=== PATIENT | male | born 1970 | race Caucasian/White ===

== ENCOUNTER 2017-04-07 17:22 | Inpatient (IN) | payer OTHER ==
--- NOTE | 2017-04-07 20:34 | HP ---
COWS - Scale Resting Pulse: 0= NE 80 or Below Sweatin=Flushed/Facial Moisture Restless Observation: 1= Difficult to Sit Still Pupil Size: 1= Pupils >than Normal Bone or Joint Aches: 1= Mild Discomfort Runny Nose/ Eye Tearin= Runny Nose/Eyes GI Upset > 30mins: 1= Stomach Cramp Tremor Observation: 2= Slight Tremor Visible Yawning Observation: 1= 1-2x During Session Anxiety or Irritability: 1=Feels Anxious/Irritable Goose Flesh Skin: 0=Smooth Skin COWS Score: 12 CIWA Score - CIWA Score Nausea/Vomitin Muscle Tremors: 3 Anxiety: 2 Agitation: 2 Paroxysmal Sweats: 3 Orientation: 0-Oriented Tacttile Disturbances: 2-Mild Itch/Numbness/Burn Auditory Disturbances: 2-Mild Harshness/Frighten Visual Disturbances: 2-Mild Sensitivity Headache: 2-Mild CIWA-Ar Total Score: 20 Admission ROS BHS - HPI Chief Complaint: DEPENDENT ON ETOH, COCAINE AND HEROIN ON 140-150 MGS. OF MMTP FROM [facility] - LAST DOSE THIS AM Allergies/Adverse Reactions: Allergies Allergy/AdvReac Type Severity Reaction Status Date / Time No Known Allergies Allergy Verified 04/07/17 20:44 History of Present Illness: THE PT. IS REQUESTING ADMISSION TO THE DETOX UNIT AND CAME FOR H AND PE Exam Limitations: No Limitations - Ebola screening Have you traveled outside of the country in the last 21 days: No Have you had contact with anyone from an Ebola affected area: No Have you been sick,other than usual withdrawal symptoms: No Do you have a fever: No - Review of Systems Constitutional: See HPI, Malaise, Weakness EENT: reports: See HPI Respiratory: reports: See HPI Cardiac: reports: See HPI, Syncope GI: reports: See HPI, Nausea, Abdominal cramping : reports: No Symptoms Reported, See HPI Musculoskeletal: reports: See HPI, Muscle Pain, Muscle Weakness Integumentary: reports: See HPI, Sweating Neuro: reports: See HPI, Headache, Tremors, Weakness Endocrine: reports: See HPI Hematology: reports: See HPI Psychiatric: reports: Judgement Intact, Orientated x3, Anxious, Depressed Patient History - Patient Medical History Hx Hypertension: Yes (ON CLONIDINE 0.2 MGS. BID) Hx Genitourinary Disorders: Yes (BPH) Hx Human Immunodeficiency Virus (HIV): No Hx Hepatitis C: No Hx Depression: No Hx Suicide Attempt: No - Patient Surgical History Past Surgical History: No - Smoking Cessation Smoking history: Current every day smoker Have you smoked in the past 12 months: Yes Aproximately how many cigarettes per day: 20 Hx Chewing Tobacco Use: No Initiated information on smoking cessation: Yes 'Breaking Loose' booklet given: 04/07/17 - Substance & Tx. History Hx Alcohol Use: Yes Hx Substance Use: Yes Substance Use Type: Alcohol, Cocaine, Heroin, Prescribed Hx Substance Use Treatment: Yes - Substances Abused Alcohol Route: Oral Frequency: Daily Amount used: BEER 2X6 PKS/LIQUOR 2 P/D Age of first use: 17 Date of Last Use: 04/07/17 Cocaine Route: Smoking Frequency: Daily Amount used: 1-2 GRAMS/D Age of first use: 33 Date of Last Use: 04/06/17 Heroin Route: Injection Frequency: 3-6 times per week Amount used: 10 B/ON ALT. DAY Age of first use: 33 Date of Last Use: 04/06/17 Family Disease History - Family Disease History Family Disease History: Diabetes: Mother Admission Physical Exam [facility] - Physical General Appearance: Yes: No Apparent Distress, Nourished, Appropriately Dressed , Tremorous, Sweating, Anxious HEENTM: Yes: Hearing grossly Normal, Normocephalic, Normal Voice, ADARSH, Pharynx Normal Respiratory: Yes: Chest Non-Tender, Lungs Clear, Normal Breath Sounds, No Respiratory Distress, No Accessory Muscle Use Neck: Yes: No masses,lesions,Nodules, Supple, Trachea in good position Breast: Yes: Breast Exam Deferred, Axillae without masses Cardiology: Yes: Regular Rhythm, Regular Rate, S1, S2 Abdominal: Yes: Normal Bowel Sounds, Non Tender, Flat, Soft Back: Yes: Normal Inspection Musculoskeletal: Yes: full range of Motion, Gait Steady, Pelvis Stable, Muscle Pain, Muscle weakness Extremities: Yes: Normal Capillary Refill, Normal Range of Motion, Non-Tender, Tremors Neurological: Yes: exhibits curator II-XII NML intact, Fully Oriented, Alert, Motor Strength 5/5, Normal Response Integumentary: Yes: Warm, Moist, Track [place] Lymphatic: Yes: Within Normal Limits - Diagnostic (1) EtOH dependence Current Visit: Yes Status: Chronic Qualifiers: Substance use status: uncomplicated Qualified Code(s): F10.20 - Alcohol dependence, uncomplicated; F10.20 - Alcohol dependence, uncomplicated; F10.20 - Alcohol dependence, uncomplicated (2) Heroin dependence Current Visit: Yes Status: Chronic (3) Cocaine dependence Current Visit: Yes Status: Chronic Qualifiers: Substance use status: uncomplicated Qualified Code(s): F14.20 - Cocaine dependence, uncomplicated; F14.20 - Cocaine dependence, uncomplicated; F14.20 - Cocaine dependence, uncomplicated (4) Nicotine dependence Current Visit: Yes Status: Chronic (5) HTN (hypertension) Current Visit: Yes Status: Chronic Qualifiers: Hypertension type: essential hypertension Qualified Code(s): I10 - Essential (primary) hypertension; I10 - Essential (primary) hypertension; I10 - Essential (primary) hypertension (6) Methadone maintenance therapy patient Current Visit: Yes Status: Chronic (7) BPH (benign prostatic hyperplasia) Current Visit: Yes Status: Chronic Cleared for Admission BHS - Detox or Rehab BHS Level of Care: Medically Supervised Detox Regimen/Protocol: Librium BHS Breath Alcohol Content Breath Alcohol Content: 0 Vital Signs - Vital Signs Vital Signs Refused: No Temperature: 98.1 F Temperature Source: Oral Pulse Rate: 71 Respiratory Rate: 14 Blood Pressure: 112/73 BP Location: Left Arm Blood Pressure Position: Sitting - Height Height: 5 ft 6 in - Weight Weight: 165 lb Weight Measurement Method: Estimated by Patient Body Mass Index (BMI): 26.6 Urine Drug Screen - Test Device Lot Number: [id number] Expiration Date: 12/22/18 - Control Is Test Valid: Yes - Results Drug Screen Negative: No Urine Drug Screen Results: JOHNNY-Cocaine, OPI-Opiates, BZO-Benzodiazepines, MTD- Methadone
[2017-04-07] MEDS ORDERED: chlordiazePOXIDE HCL 25 MG CAPSULE PO PRN (20:52)
[2017-04-07] MEDS ORDERED: P-EPHED 60MG/TRIPROLIDI 2.5MG TABLET PO PRN (20:52)
[2017-04-07] MEDS ORDERED: ACETAMINOPHEN 325 MG TABLET (FP) PO PRN (20:52)
[2017-04-07] MEDS ORDERED: chlordiazePOXIDE HCL 25 MG CAPSULE PO ONE (20:52)
[2017-04-07] MEDS ORDERED: diphenhydrAMINE HCL 50 MG CAPSULE PO PRN (20:52)
[2017-04-07] MEDS ORDERED: MAG HYDROX/AL HYDROX/SIMETH 30 ML UNIT-DOSE CUP PO PRN (20:52)
[2017-04-07] MEDS ORDERED: MENTHOL/PHENOL 1 EACH UD MM PRN (20:52)
[2017-04-07] MEDS ORDERED: hydrOXYzine PAMOATE 25 MG CAPSULE (FP) PO PRN (20:52)
[2017-04-07] MEDS ORDERED: IBUPROFEN 400 MG TABLET (FP) PO PRN (20:52)
[2017-04-07] MEDS ORDERED: NICOTINE POLACRILEX 4 MG GUM BUC PRN (20:52)
[2017-04-07] MEDS ORDERED: LOPERAMIDE HCL 2 MG CAPSULE PO PRN (20:52)
[2017-04-07] MEDS ORDERED: MAGNESIUM HYDROX 2400MG/30ML ORAL SUSPENSION 30 ML CUP PO PRN (20:52)
[2017-04-07] MEDS ORDERED: guaiFENesin/D-METHORPHAN HB 10 ML UNIT-DOSE CUPS PO PRN (20:52)
[2017-04-07] MEDS ORDERED: MAGNESIUM CITRATE 300 ML BOTTLE PO PRN (20:52)
[2017-04-07 20:54] VITALS: BMI 26.6
[2017-04-07] MEDS: cloNIDine HCL 0.1 MG TABLET PO SCH (23:38)
[2017-04-07] MEDS: chlordiazePOXIDE HCL 25 MG CAPSULE PO SCH (23:39)
[2017-04-07] MEDS: THIAMINE HCL 100 MG TABLET (FP) PO SCH (23:41)
[2017-04-08] MEDS: chlordiazePOXIDE HCL 25 MG CAPSULE PO SCH ×4 (06:10→22:24)
[2017-04-08] MEDS ORDERED: METHADONE HCL 10 MG TABLET PO SCH (10:15)
[2017-04-08] MEDS: cloNIDine HCL 0.1 MG TABLET PO SCH ×2 (10:29→22:24)
[2017-04-08] MEDS: NICOTINE 21 MG/24 HOURS TOPICAL PATCH TD SCH (10:29)
[2017-04-08] MEDS: PRENATAL VITAMINS W/ FOLIC ACID TABLET (FP) PO SCH (10:29)
[2017-04-08 11:35] LABS: MCHC 33.5 g/dl (32.0-35.9); MEAN CELL VOLUME 80.7 fl (80-96); MEAN PLT VOLUME 8.2 fl (7.5-11.1); PLATELET COUNT 229 K/MM3 (134-434); RDW 16.4 % (11.9-15.9); WHITE BLOOD COUNT 9.1 K/mm3 (4.0-10.0)
[2017-04-08] MEDS ORDERED: METHADONE HCL 10 MG TABLET ONE (11:45)
[2017-04-08] MEDS ORDERED: METHADONE HCL 40 MG DISPERSABLE TABLET ONE (11:45)
[2017-04-08] MEDS: METHADONE 120 MG, METHADONE 30 MG PO SCH (11:49)
[2017-04-08 11:51] LABS: ALBUMIN 3.2 g/dl (3.4-5.0); ALK PHOS 48 U/L (45-117); ANION GAP 10 (8-16); BILIRUBIN,TOTAL 0.2 mg/dL (0.2-1.0); CALCIUM 8.3 mg/dL (8.5-10.1); CO2 28 mmol/L (21-32); CREATININE 0.7 mg/dL (0.7-1.3); GLUCOSE,RANDOM 104 mg/dL (74-106); SGOT/AST 12 U/L (15-37); SGPT/ALT 16 U/L (12-78); TOT PROT 6.1 g/dl (6.4-8.2)
[2017-04-08 11:55] LABS: URINE APPEARANCE CLOUDY; URINE BILIRUBIN NEGATIVE (NEGATIVE); URINE BLOOD NEGATIVE (NEGATIVE); URINE COLOR DKYELLOW; URINE GLUCOSE (UA) NEGATIVE (NEGATIVE); URINE KETONE NEGATIVE (NEGATIVE); URINE NITRITE NEGATIVE (NEGATIVE); URINE PROTEIN NEGATIVE (NEGATIVE)
[2017-04-08] MEDS ORDERED: ONDANSETRON *ODT* 4 MG TABLET SL PRN (12:32)
--- NOTE | 2017-04-08 12:55 | PN ---
S CIWA - CIWA Score Nausea/Vomitin Muscle Tremors: 3 Anxiety: 3 Agitation: 3 Paroxysmal Sweats: 2 Orientation: 0-Oriented Tacttile Disturbances: 1-Very Mild Itch/Numbness Auditory Disturbances: 1-Very Mild Visual Disturbances: 1-Very Mild Sensitivity Headache: 2-Mild CIWA-Ar Total Score: 19 S Progress Note (SOAP) Subjective: ALERT,IRRITABLE,ANXIOUS,INTERRUPTED SLEEP,TREMOR,NAUSEA Objective: 04/08/17 12:52 Vital Signs Temperature 98.2 F 04/08/17 10:57 Pulse Rate 73 04/08/17 10:57 Respiratory Rate 18 04/08/17 10:57 Blood Pressure 119/81 04/08/17 10:57 O2 Sat by Pulse Oximetry (%) EKG NSR 70/MIN INVERTED T IN V3 NO CHEST PAIN,,NO SOB,NO DIZZINESS Laboratory Last Values WBC 9.1 K/mm3 (4.0-10.0) 04/08/17 07:45 RBC 4.96 M/mm3 (4.00-5.60) 04/08/17 07:45 Hgb 13.4 GM/dL (11.7-16.9) 04/08/17 07:45 Hct 40.0 % (35.4-49) 04/08/17 07:45 MCV 80.7 fl (80-96) 04/08/17 07:45 MCH 27.0 pg (25.7-33.7) 04/08/17 07:45 MCHC 33.5 g/dl (32.0-35.9) 04/08/17 07:45 RDW 16.4 % (11.9-15.9) H 04/08/17 07:45 Plt Count 229 K/MM3 (134-434) 04/08/17 07:45 MPV 8.2 fl (7.5-11.1) D 04/08/17 07:45 Sodium 142 mmol/L (136-145) 04/08/17 07:45 Potassium 3.5 mmol/L (3.5-5.1) 04/08/17 07:45 Chloride 104 mmol/L (98-107) 04/08/17 07:45 Carbon Dioxide 28 mmol/L (21-32) 04/08/17 07:45 Anion Gap 10 (8-16) 04/08/17 07:45 BUN 14 mg/dL (7-18) 04/08/17 07:45 Creatinine 0.7 mg/dL (0.7-1.3) 04/08/17 07:45 Creat Clearance w eGFR > 60 (>60) 04/08/17 07:45 Random Glucose 104 mg/dL (74-106) 04/08/17 07:45 Calcium 8.3 mg/dL (8.5-10.1) L 04/08/17 07:45 Total Bilirubin 0.2 mg/dL (0.2-1.0) D 04/08/17 07:45 AST 12 U/L (15-37) L 04/08/17 07:45 ALT 16 U/L (12-78) D 04/08/17 07:45 Alkaline Phosphatase 48 U/L (45-117) 04/08/17 07:45 Total Protein 6.1 g/dl (6.4-8.2) L 04/08/17 07:45 Albumin 3.2 g/dl (3.4-5.0) L D 04/08/17 07:45 Urine Color Dkyellow 04/08/17 11:31 Urine Appearance Cloudy 04/08/17 11:31 Urine pH 5.0 (5.0-8.0) 04/08/17 11:31 Urine Protein Negative (NEGATIVE) 04/08/17 11:31 Urine Glucose (UA) Negative (NEGATIVE) 04/08/17 11:31 Urine Ketones Negative (NEGATIVE) 04/08/17 11:31 Urine Blood Negative (NEGATIVE) 04/08/17 11:31 Urine Nitrite Negative (NEGATIVE) 04/08/17 11:31 Urine Bilirubin Negative (NEGATIVE) 04/08/17 11:31 Urine Urobilinogen 2.0 mg/dL (0.2-1.0) 04/08/17 11:31 RPR Titer Nonreactive (NONREACTIVE) 04/08/17 07:45 Assessment: 04/08/17 12:54 WITHDRAWAL SYMPTOM Plan: CONTINUE DETOX
[2017-04-08 15:21] LABS: URINE LEUK ESTERASE Negative (NEGATIVE)
[2017-04-08] MEDS: THIAMINE HCL 100 MG TABLET (FP) PO SCH (22:24)
[2017-04-09] MEDS: chlordiazePOXIDE HCL 25 MG CAPSULE PO SCH ×3 (05:18→17:25)
[2017-04-09] MEDS ORDERED: METHADONE HCL 40 MG DISPERSABLE TABLET ONE (05:19)
[2017-04-09] MEDS: METHADONE 120 MG, METHADONE 30 MG PO SCH (05:20)
[2017-04-09] MEDS ORDERED: METHADONE HCL 10 MG TABLET ONE (05:20)
[2017-04-09] MEDS: cloNIDine HCL 0.1 MG TABLET PO SCH ×2 (10:30→22:19)
[2017-04-09] MEDS: PRENATAL VITAMINS W/ FOLIC ACID TABLET (FP) PO SCH (10:30)
[2017-04-09] MEDS: NICOTINE 21 MG/24 HOURS TOPICAL PATCH TD SCH (10:31)
--- NOTE | 2017-04-09 11:40 | PN ---
S CIWA - CIWA Score Nausea/Vomitin Muscle Tremors: 3 Anxiety: 3 Agitation: 2 Paroxysmal Sweats: 1-Minimal Palms Moist Orientation: 0-Oriented Tacttile Disturbances: 1-Very Mild Itch/Numbness Auditory Disturbances: 1-Very Mild Visual Disturbances: 0-None Headache: 2-Mild CIWA-Ar Total Score: 16 BHS Progress Note (SOAP) Subjective: alert,irritable,anxious,interrupted sleep,tremor Objective: 04/09/17 11:39 Vital Signs Temperature 98.1 F 04/09/17 11:04 Pulse Rate 80 04/09/17 11:04 Respiratory Rate 20 04/09/17 11:04 Blood Pressure 97/76 04/09/17 11:04 O2 Sat by Pulse Oximetry (%) Laboratory Last Values WBC 9.1 K/mm3 (4.0-10.0) 04/08/17 07:45 RBC 4.96 M/mm3 (4.00-5.60) 04/08/17 07:45 Hgb 13.4 GM/dL (11.7-16.9) 04/08/17 07:45 Hct 40.0 % (35.4-49) 04/08/17 07:45 MCV 80.7 fl (80-96) 04/08/17 07:45 MCH 27.0 pg (25.7-33.7) 04/08/17 07:45 MCHC 33.5 g/dl (32.0-35.9) 04/08/17 07:45 RDW 16.4 % (11.9-15.9) H 04/08/17 07:45 Plt Count 229 K/MM3 (134-434) 04/08/17 07:45 MPV 8.2 fl (7.5-11.1) D 04/08/17 07:45 Sodium 142 mmol/L (136-145) 04/08/17 07:45 Potassium 3.5 mmol/L (3.5-5.1) 04/08/17 07:45 Chloride 104 mmol/L (98-107) 04/08/17 07:45 Carbon Dioxide 28 mmol/L (21-32) 04/08/17 07:45 Anion Gap 10 (8-16) 04/08/17 07:45 BUN 14 mg/dL (7-18) 04/08/17 07:45 Creatinine 0.7 mg/dL (0.7-1.3) 04/08/17 07:45 Creat Clearance w eGFR > 60 (>60) 04/08/17 07:45 Random Glucose 104 mg/dL (74-106) 04/08/17 07:45 Calcium 8.3 mg/dL (8.5-10.1) L 04/08/17 07:45 Total Bilirubin 0.2 mg/dL (0.2-1.0) D 04/08/17 07:45 AST 12 U/L (15-37) L 04/08/17 07:45 ALT 16 U/L (12-78) D 04/08/17 07:45 Alkaline Phosphatase 48 U/L (45-117) 04/08/17 07:45 Total Protein 6.1 g/dl (6.4-8.2) L 04/08/17 07:45 Albumin 3.2 g/dl (3.4-5.0) L D 04/08/17 07:45 Urine Color Dkyellow 04/08/17 11:31 Urine Appearance Cloudy 04/08/17 11:31 Urine pH 5.0 (5.0-8.0) 04/08/17 11:31 Ur Specific [place] 1.025 (1.005-1.025) 04/08/17 11:31 Urine Protein Negative (NEGATIVE) 04/08/17 11:31 Urine Glucose (UA) Negative (NEGATIVE) 04/08/17 11:31 Urine Ketones Negative (NEGATIVE) 04/08/17 11:31 Urine Blood Negative (NEGATIVE) 04/08/17 11:31 Urine Nitrite Negative (NEGATIVE) 04/08/17 11:31 Urine Bilirubin Negative (NEGATIVE) 04/08/17 11:31 Urine Urobilinogen 2.0 mg/dL (0.2-1.0) 04/08/17 11:31 Ur Leukocyte Esterase Negative (NEGATIVE) 04/08/17 11:31 RPR Titer Nonreactive (NONREACTIVE) 04/08/17 07:45 Assessment: 04/09/17 11:39 withdrawal symptom Plan: continue detox
[2017-04-09] MEDS: THIAMINE HCL 100 MG TABLET (FP) PO SCH (22:19)
[2017-04-09] MEDS: chlordiazePOXIDE 5 MG CAPSULE PO SCH (22:19)
[2017-04-10] MEDS ORDERED: METHADONE HCL 40 MG DISPERSABLE TABLET ONE (04:39)
[2017-04-10] MEDS ORDERED: METHADONE HCL 10 MG TABLET ONE (04:40)
[2017-04-10] MEDS: chlordiazePOXIDE 5 MG CAPSULE PO SCH ×3 (05:29→17:50)
[2017-04-10] MEDS: METHADONE 120 MG, METHADONE 30 MG PO SCH (05:29)
--- NOTE | 2017-04-10 07:24 | EKG ---
Test Reason : Blood Pressure : / mmHG Vent. Rate : 070 BPM Atrial Rate : 070 BPM P-R Int : 156 ms QRS Dur : 090 ms QT Int : 380 ms P-R-T Axes : 022 023 029 degrees QTc Int : 410 ms NORMAL SINUS RHYTHM NONSPECIFIC T WAVE ABNORMALITY ABNORMAL ECG NO PREVIOUS ECGS AVAILABLE Confirmed by COREY LY, JEANNETTE ([id number]) on 04/10/2017 7:23:44 AM Referred By: Kristyn Iraheta Confirmed By:JEANNETTE NICOLE MD
[2017-04-10] MEDS: cloNIDine HCL 0.1 MG TABLET PO SCH ×2 (10:28→22:16)
[2017-04-10] MEDS: PRENATAL VITAMINS W/ FOLIC ACID TABLET (FP) PO SCH (10:28)
[2017-04-10] MEDS: NICOTINE 21 MG/24 HOURS TOPICAL PATCH TD SCH (10:29)
--- NOTE | 2017-04-10 10:45 | PN ---
BHS Progress Note (SOAP) Subjective: alert,irritable,interrupted sleep,pain in the body Objective: 04/10/17 10:44 Vital Signs Temperature 98.1 F 04/10/17 10:00 Pulse Rate 75 04/10/17 10:00 Respiratory Rate 18 04/10/17 10:00 Blood Pressure 118/78 04/10/17 10:00 O2 Sat by Pulse Oximetry (%) Assessment: 04/10/17 10:44 withdrawal symptom Plan: continue detox,discharge in am
[2017-04-10] MEDS: chlordiazePOXIDE HCL 10 MG CAPSULE PO SCH (22:16)
[2017-04-10] MEDS: THIAMINE HCL 100 MG TABLET (FP) PO SCH (22:16)
[2017-04-11] MEDS ORDERED: METHADONE HCL 40 MG DISPERSABLE TABLET ONE (05:14)
[2017-04-11] MEDS ORDERED: METHADONE HCL 10 MG TABLET ONE (05:14)
[2017-04-11] MEDS: METHADONE 120 MG, METHADONE 30 MG PO SCH (05:41)
[2017-04-11] MEDS: chlordiazePOXIDE HCL 10 MG CAPSULE PO SCH ×2 (05:41→11:09)
[2017-04-11 06:36] VITALS: BP 102/59; PULSE 74; TEMP 99
--- NOTE | 2017-04-11 08:32 | DS ---
[facility] Detox Discharge Summary Admission Date: 04/07/17 Discharge Date: 04/11/17 - History Present History: Alcohol Dependence, Cocaine Dependence, MMTP Additional Comments: follow up with after care program as arrangement Pertinent Past History: nicotine dependence hypertension mmtp bph - Physical Exam Results Vital Signs: Vital Signs Temperature 99 F 04/11/17 06:28 Pulse Rate 74 04/11/17 06:28 Respiratory Rate 18 04/11/17 06:28 Blood Pressure 102/59 04/11/17 06:28 O2 Sat by Pulse Oximetry (%) Pertinent Admission Physical Exam Findings: withdrawal symptom - Treatment Hospital Course: Detox Protocol Followed, Detoxed Safely, Responded well, Discharged Condition Good Patient has Accepted a Rehab Referral to: declined - Medication Discharge Medications: Ambulatory Orders Clonidine HCl 0.2 mg PO BID 04/07/17 - Diagnosis (1) Alcohol dependence with uncomplicated withdrawal Current Visit: Yes Status: Acute (2) BPH (benign prostatic hyperplasia) Current Visit: Yes Status: Chronic (3) Cocaine dependence Current Visit: Yes Status: Chronic Qualifiers: Substance use status: uncomplicated Qualified Code(s): F14.20 - Cocaine dependence, uncomplicated; F14.20 - Cocaine dependence, uncomplicated; F14.20 - Cocaine dependence, uncomplicated (4) HTN (hypertension) Current Visit: Yes Status: Chronic Qualifiers: Hypertension type: essential hypertension Qualified Code(s): I10 - Essential (primary) hypertension; I10 - Essential (primary) hypertension; I10 - Essential (primary) hypertension (5) Methadone maintenance therapy patient Current Visit: Yes Status: Chronic (6) Nicotine dependence Current Visit: Yes Status: Chronic - AMA Did Patient Leave Against Medical Advice: No
[2017-04-11] MEDS: PRENATAL VITAMINS W/ FOLIC ACID TABLET (FP) PO SCH (10:19)
[2017-04-11] MEDS: NICOTINE 21 MG/24 HOURS TOPICAL PATCH TD SCH (10:19)
[2017-04-11] MEDS: cloNIDine HCL 0.1 MG TABLET PO SCH (10:20)
== END 2017-04-11 10:45 | disposition home or self-care (01) | DRG 773 ==
LOC: YASAS 17:22 → Y6N 20:53
PROVIDERS: ADMIT Internal Medicine; ATTEND Internal Medicine
PROC: HZ2ZZZZ Detoxification Services for Substance Abuse Treatment (ICD-10-PCS; principal; 2017-04-07)
DX: F11.20 Opioid dependence, uncomplicated (principal); F10.230 Alcohol dependence with withdrawal, uncomplicated; F14.20 Cocaine dependence, uncomplicated; F17.210 Nicotine dependence, cigarettes, uncomplicated; I10 Essential (primary) hypertension; N40.0 Benign prostatic hyperplasia without lower urinary tract symptoms
CPT/HCPCS: 36415; 80053; 81003; 85027; 86593; 93005; 93010

== ENCOUNTER 2018-02-02 20:58 | Inpatient (IN) | payer OTHER ==
[2018-02-02 23:31] VITALS: BMI 25.8
--- NOTE | 2018-02-02 23:55 | HP ---
COWS - Scale Resting Pulse: 0= [place] 80 or Below Sweatin=Flushed/Facial Moisture Restless Observation: 0= Sits Still Pupil Size: 0= Normal to Room Light Bone or Joint Aches: 4=Acute Joint/Muscle Pain Runny Nose/ Eye Tearin= None GI Upset > 30mins: 1= Stomach Cramp Tremor Observation: 2= Slight Tremor Visible Yawning Observation: 1= 1-2x During Session Anxiety or Irritability: 2=Irritable/Anxious Goose Flesh Skin: 0=Smooth Skin COWS Score: 12 CIWA Score - CIWA Score Nausea/Vomitin-No Nausea/No Vomiting Muscle Tremors: 3 Anxiety: 3 Agitation: 3 Paroxysmal Sweats: 3 Orientation: 3-Disoriented Date>2 days Tacttile Disturbances: 3-Moderate Itch/Numb/Burn Auditory Disturbances: 0-None Visual Disturbances: 0-None Headache: 2-Mild CIWA-Ar Total Score: 20 Admission ROS S - [facility] Chief Complaint: SEEKING DETOX FOR C/O WITHDRAWAL SX'S Allergies/Adverse Reactions: Allergies Allergy/AdvReac Type Severity Reaction Status Date / Time No Known Allergies Allergy Verified 04/24/17 12:05 History of Present Illness: 47 Y.O. MALE WITH POLY SUBSTANCE ABUSE HERE FOR HEROIN AND ALCOHOL DETOX. CLIENT IS KNOWN TO THIS PROGRAM. LAST HERE 04/2017. SELF REFERRED. REPORTS LONGEST CLEAN TIME 5 YEARS WHILE INCARCERATED. DENIES HX/O SEIZURES, OVERDOSE, SH/HI, AVH PMHX: HTN, BPH, HLD PSYCH: DENIES Exam Limitations: No Limitations - Ebola screening Have you traveled outside of the country in the last 21 days: No Have you had contact with anyone from an Ebola affected area: No Have you been sick,other than usual withdrawal symptoms: No Do you have a fever: No - Review of Systems Constitutional: Chills, Loss of Appetite, Malaise, Night Sweats, Unintentional Wgt. Loss Respiratory: reports: No Symptoms reported Cardiac: reports: No Symptoms Reported GI: reports: Poor Appetite, Poor Fluid Intake, Abdominal cramping : reports: No Symptoms Reported Musculoskeletal: reports: Back Pain, Joint Pain Integumentary: reports: No Symptoms Reported Neuro: reports: No Symptoms reported Endocrine: reports: No Symptoms Reported Hematology: reports: No Symptoms Reported Psychiatric: reports: Anxious, Depressed Other Systems: Reviewed and Negative Patient History - Patient Medical History Hx Anemia: No Hx Asthma: No Hx Chronic Obstructive Pulmonary Disease (COPD): No Hx Cancer: No Hx Cardiac Disorders: No Hx Congestive Heart Failure: No Hx Hypertension: Yes Hx Hypercholesterolemia: No Hx Pacemaker: No HX Cerebrovascular Accident: No Hx Seizures: No Hx Dementia: No Hx Diabetes: No Hx Gastrointestinal Disorders: No Hx Liver Disease: No Hx Genitourinary Disorders: No Hx Sexually Transmitted Disorders: No Hx Renal Disease (ESRD): No Hx Thyroid Disease: No Hx Human Immunodeficiency Virus (HIV): No Hx Hepatitis C: No Hx Depression: No Hx Suicide Attempt: No Hx Bipolar Disorder: No Hx Schizophrenia: No Other Medical History: BPH - Patient Surgical History Past Surgical History: No Hx Neurologic Surgery: No Hx Cataract Extraction: No Hx Cardiac Surgery: No Hx Lung Surgery: No Hx Breast Surgery: No Hx Breast Biopsy: No Hx Abdominal Surgery: No Hx Appendectomy: No Hx Cholecystectomy: No Hx Genitourinary Surgery: No Hx Section: No Hx Orthopedic Surgery: No Anesthesia Reaction: No - PPD History Previous Implant?: Yes Documented Results: Positive w/o proof Implanted On Prior R Admission?: No Results: NEG CXR 04/2107 PPD to be Administered?: No - Smoking Cessation Smoking history: Current every day smoker Have you smoked in the past 12 months: Yes Aproximately how many cigarettes per day: 20 Cigars Per Day: 0 Hx Chewing Tobacco Use: No Initiated information on smoking cessation: Yes 'Breaking Loose' booklet given: 02/02/18 - Substance & Tx. History Hx Alcohol Use: Yes Hx Substance Use: Yes Substance Use Type: Alcohol, Cocaine, Heroin Hx Substance Use Treatment: Yes ([facility]) - Substances Abused HEROIN Route: Injection Frequency: Daily Amount used: 20 BAGS Age of first use: 27 Date of Last Use: 02/02/18 BEER/LIQUOR Route: Oral Frequency: Daily Amount used: 12-12OZCANS/1QUART Age of first use: 42 Date of Last Use: 02/02/18 COCAINE Route: Injection Frequency: Daily Amount used: 2GMS Age of first use: 42 Date of Last Use: 02/02/18 Family Disease History - Family Disease History Family Disease History: Diabetes: Mother Admission Physical Exam BHS - Vital Signs Vital Signs: Vital Signs - 24 hr 08/11/18 23:29 Temperature 98.9 F Pulse Rate 77 Respiratory 18 Rate Blood Pressure 140/80 - Physical General Appearance: Yes: Appropriately Dressed, Mild Distress, Tremorous, Irritable, Anxious HEENTM: Yes: EOMI, Normocephalic, Normal Voice, ADARSH, Pharynx Normal, Nasal Congestion, Other (DENTURES BOTH) Respiratory: Yes: Chest Non-Tender, Lungs Clear, Normal Breath Sounds, No Respiratory Distress, No Accessory Muscle Use Neck: Yes: No masses,lesions,Nodules, Supple, Trachea in good position Breast: Yes: Breast Exam Deferred Cardiology: Yes: Regular Rhythm, Regular Rate, S1, S2 Abdominal: Yes: Non Tender, Flat, Soft, Increased Bowel Sounds Genitourinary: Yes: Other (NO C/O) Back: Yes: Normal Inspection Extremities: Yes: Normal Range of Motion, Non-Tender, Tremors Neurological: Yes: Fully Oriented, Alert, Motor Strength 5/5, Depressed Affect Integumentary: Yes: Dry, Warm, Track [place] Lymphatic: Yes: Within Normal Limits - Diagnostic (1) IVDU (intravenous drug user) Current Visit: Yes Status: Acute (2) Substance induced mood disorder Current Visit: Yes Status: Suspected (3) History of positive PPD Current Visit: Yes Status: Chronic (4) Alcohol dependence with uncomplicated withdrawal Current Visit: Yes Status: Acute (5) BPH (benign prostatic hyperplasia) Current Visit: Yes Status: Chronic (6) Cocaine dependence Current Visit: Yes Status: Chronic Qualifiers: Substance use status: uncomplicated Qualified Code(s): F14.20 - Cocaine dependence, uncomplicated (7) HTN (hypertension) Current Visit: Yes Status: Chronic Qualifiers: Hypertension type: essential hypertension Qualified Code(s): I10 - Essential (primary) hypertension (8) Nicotine dependence Current Visit: Yes Status: Chronic Qualifiers: Nicotine product type: cigarettes Substance use status: uncomplicated Qualified Code(s): F17.210 - Nicotine dependence, cigarettes, uncomplicated (9) Opioid dependence with withdrawal Current Visit: Yes Status: Acute Cleared for Admission S - Detox or Rehab [facility] Level of Care: Medically Managed Detox Regimen/Protocol: Methadone/Librium Claeared for Rehab Admission: No S Breath Alcohol Content Breath Alcohol Content: 0 Urine Drug Screen - Results Drug Screen Negative: No Urine Drug Screen Results: JOHNNY-Cocaine, OPI-Opiates, MTD-Methadone, OXY- Oxycodone
[2018-02-03] MEDS ORDERED: guaiFENesin/D-METHORPHAN HB 10 ML UNIT-DOSE CUPS PO PRN (00:03)
[2018-02-03] MEDS ORDERED: MAGNESIUM HYDROX 2400MG/30ML ORAL SUSPENSION 30 ML CUP PO PRN (00:03)
[2018-02-03] MEDS ORDERED: METHADONE HCL 10 MG TABLET (FOR DETOX USE ONLY) PO ONE ×3 (00:03→22:00)
[2018-02-03] MEDS ORDERED: IBUPROFEN 400 MG TABLET (FP) PO PRN (00:03)
[2018-02-03] MEDS ORDERED: MAG HYDROX/AL HYDROX/SIMETH 30 ML UNIT-DOSE CUP PO PRN (00:03)
[2018-02-03] MEDS ORDERED: chlordiazePOXIDE HCL 25 MG CAPSULE PO PRN (00:03)
[2018-02-03] MEDS ORDERED: P-EPHED 60MG/TRIPROLIDI 2.5MG TABLET PO PRN (00:03)
[2018-02-03] MEDS ORDERED: MAGNESIUM CITRATE 300 ML BOTTLE PO PRN (00:03)
[2018-02-03] MEDS ORDERED: MENTHOL/PHENOL 1 EACH UD MM PRN (00:03)
[2018-02-03] MEDS ORDERED: ACETAMINOPHEN 325 MG TABLET (FP) PO PRN (00:03)
[2018-02-03] MEDS ORDERED: LOPERAMIDE HCL 2 MG CAPSULE PO PRN (00:03)
[2018-02-03] MEDS ORDERED: NICOTINE POLACRILEX 2 MG GUM BC PRN (00:03)
[2018-02-03] MEDS: chlordiazePOXIDE HCL 25 MG CAPSULE PO SCH ×3 (06:18→17:44)
--- NOTE | 2018-02-03 06:32 | CONSULT ---
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 Refer to addiction counselor's summary for further information Medical History: Significant for hypertension, BPH. Smokes cigarettes 1ppd Psychiatric History: Denies history of previous psychiatric treatment Physical/Sexual Abuse/Trauma History: Denies history of verbal, physical or sexual abuse as well as DV relationship Additional Comment: Reports history of multiple arrests including 2 felony convictions. No parole/probation currently Mental Status Exam - Mental Status Exam Alert and Oriented to: Time, Place, Person Cognitive Function: Fair Patient Appearance: Disheveled Mood: Anxious Patient Behavior: Sedated Speech Pattern: Clear Voice Loudness: Normal Thought Process: Intact, Goal Oriented Thought Disorder: Not Present Hallucinations: Denies Suicidal Ideation: Denies Homicidal Ideation: Denies Insight/Judgement: Fair Sleep: Fair Appetite: Good Muscle strength/Tone: Normal Gait/Station: Normal Psychiatric Findings - Problem List ([place] 1, 2,3) (1) Substance-induced anxiety disorder Current Visit: Yes Status: Acute (2) Alcohol dependence with uncomplicated withdrawal Current Visit: Yes Status: Acute (3) Opioid dependence with withdrawal Current Visit: Yes Status: Acute (4) Cocaine dependence Current Visit: Yes Status: Acute Qualifiers: Substance use status: uncomplicated Qualified Code(s): F14.20 - Cocaine dependence, uncomplicated (5) Nicotine dependence Current Visit: Yes Status: Chronic Qualifiers: Nicotine product type: cigarettes Substance use status: uncomplicated Qualified Code(s): F17.210 - Nicotine dependence, cigarettes, uncomplicated (6) BPH (benign prostatic hyperplasia) Current Visit: Yes Status: Chronic (7) HTN (hypertension) Current Visit: Yes Status: Chronic Qualifiers: Hypertension type: essential hypertension Qualified Code(s): I10 - Essential (primary) hypertension (8) History of positive PPD Current Visit: Yes Status: Chronic - Initial Treatment Plan Initial Treatment Plan: Continue inpatient detoxification
[2018-02-03] MEDS ORDERED: TAMSULOSIN HCL 0.4 MG CAP.ER.24H (FP) PO SCH (08:30)
--- NOTE | 2018-02-03 08:57 | EKG ---
Test Reason : Blood Pressure : / mmHG Vent. Rate : 066 BPM Atrial Rate : 066 BPM P-R Int : 154 ms QRS Dur : 084 ms QT Int : 392 ms P-R-T Axes : 020 010 008 degrees QTc Int : 410 ms NORMAL SINUS RHYTHM NORMAL ECG WHEN COMPARED WITH ECG OF 07-APR-2017 21:37, T WAVE INVERSION NO LONGER EVIDENT IN ANTERIOR LEADS Confirmed by JACQUI STUART MD ([id number]) on 02/03/2018 8:56:30 AM Referred By: Confirmed By:JACQUI STUART MD
[2018-02-03] MEDS ORDERED: cloNIDine HCL 0.1 MG TABLET PO SCH (10:00)
[2018-02-03] MEDS ORDERED: PRENATAL VITAMINS W/ FOLIC ACID TABLET (FP) PO SCH (10:00)
[2018-02-03] MEDS ORDERED: NICOTINE 21 MG/24 HOURS TOPICAL PATCH TD SCH (10:00)
[2018-02-03 10:51] LABS: HEMATOCRIT 37.8 % (35.4-49); HEMOGLOBIN 12.7 GM/dL (11.7-16.9); MCH 26.8 pg (25.7-33.7); MCHC 33.7 g/dl (32.0-35.9); MEAN CELL VOLUME 79.5 fl (80-96); MEAN PLT VOLUME 8.8 fl (7.5-11.1); PLATELET COUNT 240 K/MM3 (134-434); RBC 4.76 M/mm3 (4.00-5.60); RDW 15.6 % (11.9-15.9); WHITE BLOOD COUNT 7.4 K/mm3 (4.0-10.0)
[2018-02-03 11:25] LABS: ALBUMIN 3.4 g/dl (3.4-5.0); ANION GAP 5 (8-16); BLOOD UREA NITROGEN 18 mg/dL (7-18); CALCIUM 8.6 mg/dL (8.5-10.1); CHLORIDE 108 mmol/L (98-107); CO2 31 mmol/L (21-32); GLUCOSE,RANDOM 119 mg/dL (74-106); POTASSIUM 3.9 mmol/L (3.5-5.1); SGOT/AST 17 U/L (15-37); SGPT/ALT 20 U/L (12-78); SODIUM 144 mmol/L (136-145)
[2018-02-03 11:26] LABS: ALK PHOS 44 U/L (45-117); BILIRUBIN,TOTAL 0.2 mg/dL (0.2-1.0); TOT PROT 6.2 g/dl (6.4-8.2)
--- NOTE | 2018-02-03 17:36 | PN ---
[facility] CIWA - CIWA Score Nausea/Vomitin Muscle Tremors: 3 Anxiety: 3 Agitation: 3 Paroxysmal Sweats: 3 Orientation: 0-Oriented Tacttile Disturbances: 1-Very Mild Itch/Numbness Auditory Disturbances: 0-None Visual Disturbances: 0-None Headache: 1-Very Mild CIWA-Ar Total Score: 16 BHS COWS - Scale Resting Pulse: 0= [place] 80 or Below Sweatin= Chills/Flushing Restless Observation: 3= Extraneous Movement Pupil Size: 1= Pupils >than Normal Bone or Joint Aches: 2= Severe Diffuse Aches Runny Nose/ Eye Tearin= Runny Nose/Eyes GI Upset > 30mins: 2= Nausea/Diarrhea Tremor Observation of Outstretched Hands: 2= Slight Tremor Visible Yawning Observation: 1= 1-2x During Session Anxiety or Irritability: 2=Irritable/Anxious Goose Flesh Skin: 0=Smooth Skin COWS Score: 16 S Progress Note (SOAP) Subjective: Sweating, chills, interrupted sleep Objective: 02/03/18 17:33 Last Vital Signs Temp Pulse Resp BP Pulse Ox 98.1 F 63 18 106/71 02/03/18 13:59 02/03/18 13:59 02/03/18 13:59 02/03/18 13:59 Laboratory Tests 02/03/18 02/03/18 02/03/18 08:00 08:30 09:00 WBC 7.4 RBC 4.76 Hgb 12.7 Hct 37.8 MCV 79.5 L MCH 26.8 MCHC 33.7 RDW 15.6 Plt Count 240 MPV 8.8 Sodium 144 Potassium 3.9 Chloride 108 H Carbon Dioxide 31 Anion Gap 5 L BUN 18 Creatinine 1.0 Creat Clearance w eGFR > 60 Random Glucose 119 H Calcium 8.6 Total Bilirubin 0.2 AST 17 D ALT 20 D Alkaline Phosphatase 44 L Total Protein 6.2 L Albumin 3.4 RPR Titer Nonreactive Labs reviewed Assessment: 02/03/18 17:35 Withdrawal symptoms Plan: Continue detox Encouraged PO water hydration
[2018-02-03] MEDS ORDERED: TRIMETHOBENZAMIDE HCL 200MG/2ML INJ IM PRN (18:29)
[2018-02-03] MEDS ORDERED: ONDANSETRON 8 MG TABLET (FP) PO ONE (19:00)
[2018-02-03 19:02] VITALS: BP 112/70; PULSE 67; TEMP 98.5
--- NOTE | 2018-02-03 19:37 | PN ---
[facility] Progress Note Note: Tigan ordered for pt's vomiting
--- NOTE | 2018-02-03 19:40 | PN ---
[facility] Progress Note Note: Got called by RN Gilda baron pt wants to sign out AMA. Pt did not want to wait for MD provider. This provider earlier saw pt re - vomiting Did not evaluate pt just prior to leaving unit Pt will sign out AMA
--- NOTE | 2018-02-03 19:41 | DS ---
S Detox Discharge Summary Admission Date: 02/02/18 Discharge Date: 02/03/18 - History Additional Comments: pt signing out AMA from unit Pt declines flomax sent to his pharmacy - Physical Exam Results Vital Signs: Vital Signs Temperature 98.5 F 02/03/18 19:02 Pulse Rate 67 02/03/18 19:02 Respiratory Rate 18 02/03/18 19:02 Blood Pressure 112/70 02/03/18 19:02 O2 Sat by Pulse Oximetry (%) Pertinent Admission Physical Exam Findings: withdrawals sx - Medication Discharge Medications: Ambulatory Orders Clonidine HCl 0.2 mg PO BID 04/07/17 Tamsulosin HCl [Flomax] 0.4 mg PO DAILY 04/24/17 - AMA Did Patient Leave Against Medical Advice: Yes
[2018-02-03] MEDS ORDERED: MELATONIN 5 MG TABLETS PO PRN (22:00)
[2018-02-03] MEDS ORDERED: THIAMINE HCL 100 MG TABLET (FP) PO SCH (22:00)
[2018-02-04] MEDS ORDERED: chlordiazePOXIDE HCL 25 MG CAPSULE PO SCH (05:00)
[2018-02-04] MEDS ORDERED: METHADONE HCL 5 MG TABLET (FOR DETOX USE ONLY) PO SCH (10:00)
[2018-02-05] MEDS ORDERED: chlordiazePOXIDE 5 MG CAPSULE PO SCH (05:00)
[2018-02-05] MEDS ORDERED: METHADONE HCL 5 MG TABLET (FOR DETOX USE ONLY) PO SCH (10:00)
[2018-02-06] MEDS ORDERED: chlordiazePOXIDE HCL 10 MG CAPSULE PO SCH (05:00)
[2018-02-07] MEDS ORDERED: METHADONE HCL 10 MG TABLET (FOR DETOX USE ONLY) PO SCH (10:00)
[2018-02-08] MEDS ORDERED: METHADONE HCL 10 MG TABLET (FOR DETOX USE ONLY) PO SCH (06:00)
== END 2018-02-03 19:56 | disposition left against medical advice (07) | DRG 770 ==
LOC: YASAS 20:58 → Y3N 23:15
PROVIDERS: ADMIT Surgery; ATTEND Surgery
PROC: HZ2ZZZZ Detoxification Services for Substance Abuse Treatment (ICD-10-PCS; principal; 2018-02-02)
DX: F11.23 Opioid dependence with withdrawal (principal); F10.230 Alcohol dependence with withdrawal, uncomplicated; F14.20 Cocaine dependence, uncomplicated; F17.210 Nicotine dependence, cigarettes, uncomplicated; F19.24 Other psychoactive substance dependence with psychoactive substance-induced mood disorder; I10 Essential (primary) hypertension; N40.0 Benign prostatic hyperplasia without lower urinary tract symptoms; R76.11 Nonspecific reaction to tuberculin skin test without active tuberculosis
CPT/HCPCS: 36415; 80053; 85027; 86593; 93005; 93010; J0735

== ENCOUNTER 2018-11-21 23:09 | Observation (INO) | payer OTHER ==
[2018-11-21 23:16] VITALS: BMI 26.6
[2018-11-21] MEDS ORDERED: ASPIRIN 81 MG CHEWABLE TABLETS PO ONE (23:25)
[2018-11-21 23:40] LABS: BASO % 0.8 % (0-2.0); EOS % 2.5 % (0-4.5); HEMOGLOBIN 14.5 GM/dL (11.7-16.9); LYMPH % 32.9 % (8-40); MCH 27.5 pg (25.7-33.7); MEAN CELL VOLUME 83.2 fl (80-96); MEAN PLT VOLUME 7.8 fl (7.5-11.1); MONO % 9.5 % (3.8-10.2); NEUT % 54.3 % (42.8-82.8); PLATELET COUNT 242 K/MM3 (134-434); RBC 5.29 M/mm3 (4.00-5.60); RDW 16.6 % (11.9-15.9); WHITE BLOOD COUNT 13.4 K/mm3 (4.0-10.0)
[2018-11-21] MEDS ORDERED: ASPIRIN COATED 81 MG TABLET.EC ONE (23:51)
[2018-11-22] LABS: INR 1.13 (0.83-1.09); PROTHROMBIN TIME (PATIENT) 13.3 SEC (9.7-13.0)
--- NOTE | 2018-11-22 00:05 | PDOC ---
Documentation entered by Nicci Krishnamurthy SCRIBE, acting as scribe for Lawrence Barajas MD. Lawrence Barajas MD: This documentation has been prepared by the scribe, Nicci Krishnamurthy SCRIBE, under my direction and personally reviewed by me in its entirety. I confirm that the documentation accurately reflects all work, treatment, procedures, and medical decision making performed by me. Attending Attestation - Resident Resident Name: Andres Waddell - ED Attending Attestation I have performed the following: I have examined & evaluated the patient, The case was reviewed & discussed with the resident, I agree w/resident's findings & plan, Exceptions are as noted - HPI HPI: 11/22/18 00:08 48y htn, hl, CAD (Sp [place]) presents with sudden onset of anusea, diaphoresis, palpitations without sob/cp - was witnesed by EMS, symptoms had resolved by the time the patient arrived in the ER - duration of symptoms approx 2 hours. Patient states that earlier in the day he was doing fairly vigorous work including yard work but he was asymptomatic. States that he was sitting down and resting when he became diaphoretic, feeling nauseous, he denies any associated chest pain, shortness breath, hemoptysis, leg swelling, palpitations , headache, back pain, neck pain. The patient did endorse mild discomfort in the right upper quadrant that was sharp and brief in nature. Patient endorses feeling similar symptoms approximately 9 years ago where he was told was his heart. He is uncertain if he ever had a catheterization or stents, he does not follow up with a celery wrapper. Social: Denies EtOH, daily smoker - Physicial Exam PE: 11/22/18 00:33 GENERAL: The patient is awake, alert, and fully oriented, Nontoxic - in no acute distress. HEAD: Normocephalic, atraumatic. EYES: extraocular movements intact, sclera anicteric, conjunctiva clear. ENT: Normal voice, Moist mucous membranes. NECK: Normal range of motion, supple LUNGS: Breath sounds equal, clear to auscultation bilaterally. No wheezes, no rhonchi, no rales. HEART: Regular rate and rhythm, normal S1 and S2 without murmur, rub or gallop. ABDOMEN: Soft, nontender No guarding, no rebound. . No CVA tenderness, negative Carroll's EXTREMITIES: Normal range of motion, no edema. NEUROLOGICAL: No facial assymetry, Normal speech, PSYCH: Normal mood, normal affect. SKIN: Warm, Dry, normal turgor, 11/22/18 00:37 - Medical Decision Making 11/22/18 00:36 48-year-old gentleman history of hypertension, hyperlipidemia, CAD, chronic smoker presenting with an episode of diaphoresis, nausea associated with mild sharp right upper quadrant pain lasting approximately 2 hours. Patient's symptom had resolved at this point with a normal physical exam. Differential for patient's symptoms includes possible ACS, consider cholelithiasis We'll obtain blood work, EKG, quadrant ultrasound 11/22/18 01:[address] in obs for r/o acs gb us neg Heart Score/ECG Review - ECG Impressions Comment:: 11/22/18 01:19 Twelve-lead EKG was performed and reviewed by me. There is normal sinus rhythm with a normal rate. Rate of 79 The axis is normal. The intervals are normal. Abnormal R wave progression Nonspecific T wave inversion in lead 3
[2018-11-22 00:14] LABS: ALBUMIN 3.7 g/dl (3.4-5.0); ALK PHOS 75 U/L (45-117); ANION GAP 9 MMOL/L (8-16); BILIRUBIN,TOTAL 0.9 mg/dL (0.2-1); BLOOD UREA NITROGEN 28 mg/dL (7-18); CALCIUM 8.5 mg/dL (8.5-10.1); CHLORIDE 103 mmol/L (98-107); CO2 26 mmol/L (21-32); CREATININE 1.3 mg/dL (0.55-1.3); GLUCOSE,RANDOM 112 mg/dL (74-106); MAGNESIUM 2.1 mg/dL (1.8-2.4); POTASSIUM 3.8 mmol/L (3.5-5.1); SGOT/AST 183 U/L (15-37); SGPT/ALT 374 U/L (13-61); SODIUM 138 mmol/L (136-145); TOT PROT 7.2 g/dl (6.4-8.2)
--- NOTE | 2018-11-22 00:40 | PDOC ---
History of Present Illness - General Chief Complaint: Weakness Stated Complaint: GROIN PAIN Time Seen by Provider: 11/21/18 23:18 History Source: Patient, EMS Exam Limitations: No Limitations - History of Present Illness Initial Comments: 11/22/18 00:35 48M with a PMH of HTN, HLD, AR (15 years ago) on 81mg asa who presents to the ED after having an episode of diaphoresis and nausea. The patient states that he was in his normal state of health when he developed diaphoresis, lightheadedness, and palpitations. He states that his son saw him and became concerned. He denies any CP or SOB during this time. He currently denies any active complaints. Per EMS, upon their arrival he was diaphoretic and pale. The patient admits to changing his shirt due to diaphoresis. Past History - Past Medical History Allergies/Adverse Reactions: Allergies Allergy/AdvReac Type Severity Reaction Status Date / Time No Known Allergies Allergy Verified 11/21/18 23:16 Home Medications: Ambulatory Orders Clonidine HCl 0.2 mg PO BID 04/07/17 Tamsulosin HCl [Flomax] 0.4 mg PO DAILY 04/24/17 Anemia: No Asthma: No Cancer: No Cardiac Disorders: No CVA: No COPD: No CHF: No Dementia: No Diabetes: No GI Disorders: No Disorders: No HTN: Yes Hypercholesterolemia: Yes Kidney Stones: No Liver Disease: No Seizures: No Thyroid Disease: No Other medical history: enlarged prostate - Surgical History Abdominal Surgery: No Appendectomy: No Cardiac Surgery: No Cholecystectomy: No Lung Surgery: No Neurologic Surgery: No Orthopedic Surgery: No - Reproductive History Testicular Surgery: No - Suicide/Smoking/Psychosocial Hx Smoking History: Current every day smoker Have you smoked in the past 12 months: Yes Number of Cigarettes Smoked Daily: 10 Cigars Per Day: 0 Information on smoking cessation initiated: No 'Breaking Loose' booklet given: 02/02/18 Hx Alcohol Use: No Drug/Substance Use Hx: No Substance Use Type: Alcohol, Cocaine, Heroin Hx Substance Use Treatment: Yes ([facility]) *Physical Exam - Vital Signs Last Vital Signs Temp Pulse Resp BP Pulse Ox 98.7 F 98 H 18 115/71 100 11/21/18 23:13 11/21/18 23:13 11/21/18 23:13 11/21/18 23:13 11/21/18 23:13 Heart Score/ECG Review - History History: Moderately suspicious - Electrocardiogram EKG: Normal - Age Age: 45-65 - Risk Factors Risk Factors Heart Score: Yes Hx Hypercholesterolemia, Yes Hx Hypertension, Yes Smoking History Based on the list above the patient has:: >/=3 risk factors or Hx atherosclerotic disease - Troponin Troponin: </= normal limit - Score Heart Score - Total: 4 ED Treatment Course - LABORATORY CBC & Chemistry Diagram: 11/21/18 23:27 11/21/18 23:27 - ADDITIONAL ORDERS Additional order review: Laboratory Results 11/21/18 11/21/18 23:27 23:27 PT with INR 13.30 H INR 1.13 H Sodium 138 Potassium 3.8 Chloride 103 Carbon Dioxide 26 Anion Gap 9 BUN 28 H Creatinine 1.3 Est GFR (CKD-EPI)AfAm 73.74 Est GFR (CKD-EPI)NonAf 63.62 Random Glucose 112 H Calcium 8.5 Magnesium 2.1 Total Bilirubin 0.9 AST 183 H ALT 374 H Alkaline Phosphatase 75 Creatine Kinase 154 Troponin I < 0.02 Total Protein 7.2 Albumin 3.7 11/21/18 23:27 RBC 5.29 MCV 83.2 MCHC 33.0 RDW 16.6 H MPV 7.8 D Neutrophils % 54.3 Lymphocytes % 32.9 Monocytes % 9.5 Eosinophils % 2.5 Basophils % 0.8 - RADIOLOGY Radiology Studies Ordered: Category Date Time Status CHEST X-RAY PORTABLE* [RAD] Stat Radiology 11/21/18 23:26 Taken - Medications Given in the ED: ED Medications Discontinued Medications Generic Name Dose Route Start Last Admin Trade Name Freq PRN Reason Stop Dose Admin Aspirin 162 mg 11/21/18 23:25 11/22/18 00:22 Asa - PO 11/21/18 23:26 162 mg ONCE ONE Administration Medical Decision Making - Medical Decision Making 11/22/18 02:13 48M with a PMH of HTN, HLD, AR who presents with resolved diaphoresis and nausea , concerning for ACS. Initial troponin negative. HEART score of 4. RUQ US negative. Will admit for concern of ACS. Microblogged for admission. 11/22/18 02:[address] Rob for admission. *DC/Admit/Observation/Transfer Diagnosis at time of Disposition: ACS (acute coronary syndrome) - Discharge Dispostion Condition at time of disposition: Guarded Decision to Admit order: Yes - Referrals Referrals: Alen Sims MD [Primary Care Provider] - - Patient Instructions - Post Discharge Activity
--- NOTE | 2018-11-22 02:42 | PN ---
Teaching Attending Note Name of Resident: Te Rob ATTENDING PHYSICIAN STATEMENT I saw and evaluated the patient. I reviewed the resident's note and discussed the case with the resident. I agree with the resident's findings and plan as documented. SUBJECTIVE: Patient is 48 year old man with PMH of HTN, HLD CAD (s/p CA?), BPH and tobacco use who presents with sudden onset of nausea, diaphoresis, an palpitations for about 2 hours. There was no associated SOB or chest pain and symptoms had resolved by the time the patient arrived in the ER. Patient states that earlier in the day he was doing fairly vigorous work including yard work but he was asymptomatic. States that he was sitting down and resting when symptoms commenced. Does not use any illicit drugs and has no family history of premature CAD. He denies any associated chest pain, shortness breath, hemoptysis, leg swelling , headache, back pain or neck pain. Has mild discomfort in the right upper quadrant of the abdomen that was sharp and brief in nature. Patient say he had similar symptoms approximately 9 years ago where he was told it was his heart. He is uncertain if he ever had cardiac catheterization or cardiac stents. He does not follow up with a community health educator. OBJECTIVE: Alert Vital Signs Period Temp Pulse Resp BP Sys/Reyes Pulse Ox Last 24 Hr 98.7 F 98 18 115/71 100 HEENT: No Jaundice, eye redness or discharge, PERRLA, EOMI. Normocephalic, atraumatic. External ears are normal and hearing is grossly intact. No nasal discharge. Neck: Supple, nontender. No palpable adenopathy or thyromegaly. No JVD Chest: Good effort. Clear to auscultation and percussion. Heart: Regular. No S3, rub or murmur Abdomen: Not distended, soft, nontender and no HSM. No rebound or guarding. Normal bowel sounds. Ext: Peripheral pulses intact. No leg edema. Skin: Warm and dry. No petechiae, rash or ecchymosis. Neuro: Alert. Oriented x3. CN 2-12 grossly intact. Sensation grossly intact in all four extremities and DTR are symmetric. Psych: Appropriate mood and affect. Good insight. Current Medications Generic Name Dose Route Start Last Admin Trade Name Freq PRN Reason Stop Dose Admin Aspirin 81 mg 11/22/18 10:00 Ecotrin - PO DAILY [facility] Atorvastatin Calcium 40 mg 11/22/18 22:00 Lipitor - PO HS [facility] Enoxaparin Sodium 40 mg 11/22/18 10:00 Lovenox - SQ DAILY [facility] Sodium Chloride 1,000 mls @ 100 mls/hr 11/22/18 02:45 Normal Saline - IV 11/23/18 12:44 ASDIR [facility] Home Medications Medication Instructions Recorded Clonidine HCl 0.2 mg PO BID 04/07/17 Tamsulosin HCl [Flomax] 0.4 mg PO DAILY 04/24/17 Abnormal Lab Results 11/21/18 11/21/18 11/21/18 23:27 23:27 23:27 WBC 13.4 H RDW 16.6 H PT with INR 13.30 H INR 1.13 H BUN 28 H Random Glucose 112 H AST 183 H ALT 374 H ASSESSMENT AND PLAN: 1. Rule out ACS - Presentation is atypical. EKG shows NSR with t wave inversion in lead 3 and initial troponin is negative. CXR elevation of left hemidiaphragm but no other acute abnormality on CXR. Will admit to telemetry to rule out ACS, get ECHO, HbA1c, urine toxicology, fasting lipids and cardiology consult. Elevated LFTs and leukocytosis are concerning for hepatobiliary infection. No abnormality noted on preliminary results of RUQ sonogram. Will do blood cultures , Urinalysis, repeat CBC, trend LFTs, get hepatitis serology, give gentle hydration and consult GI. 2. Tobacco Use Counseled on risks associated with tobacco use. We will provide patient all the necessary assistance to facilitate smoking cessation and prescribe Nicotine patch. 3. Hypertension - Restart outpatient antihypertensive drugs and revise regimen to ensure smooth [id number] good BP control. Nonpharmacologic measures to control hypertension like weight loss, salt restriction and exercise discussed. 4. DVT prophylaxis - Lovenox 40 mg SQ q 24 hours. 5. Advance directives - Full code
[2018-11-22] MEDS ORDERED: SODIUM CHLORIDE 1,000 ML IV SCH (02:45)
--- NOTE | 2018-11-22 03:41 | HP ---
CHIEF COMPLAINT: diaphoresis HISTORY OF PRESENT ILLNESS: 48-year-old male with a past medical history of hypertension, hyperlipidemia, benign prostatic hyperplasia, presents the hospital for two hour history of diaphoresis an groin pain that began at 6 PM today. The patient reports that his symptoms began while he was working around the house - he states that it began with severe groin pain that he rates a 7/10 bilaterally which was succeeded by diaphoresis, nausea, palpitations, and extreme weakness that left him unable to move. His son became concerned about his symptoms and told him to go to the hospital. Denied chest pain at the time. He says the symptoms lasted for around two hours and then self resolved without any intervention. He states that he experienced similar symptoms around eight years ago, for which he did not go to hospital. The patient reports that he had a myocardial infarction around ten years ago, but states that he had not had a catheterization. He reports the symptoms did not appear similar to the myocardial infarction he had in the past. He does not follow with a men's and boys' clothing salesperson because he reports that his men's and boys' clothing salesperson had . Patient used to be on a statin but has not been taking it. Currently denies any symptoms including chest pain, shortness of breath, palpitations, nausea, vomiting, diarrhea, fevers, chills.He does state that his vision has been worsening recently. ER course was notable for: (1) Transaminitis (2) EKG showing normal sinus rhythm without any ST segment or T wave changes (3) Troponin normal Recent Travel: denies PAST MEDICAL HISTORY: Paper tension, hyperlipidemia, benign prostatic hyperplasia PAST SURGICAL HISTORY: Right forearm surgery, prostate surgery. Social History: Smokin cigarettes a day for 20 years Alcohol: Denies alcohol use Drugs: Reports using marijuana in the past Family History: Mother with diabetes and father with throat cancer. Allergies No Known Allergies Allergy (Verified 11/21/18 23:16) HOME MEDICATIONS: Home Medications Medication Instructions Recorded Clonidine HCl 0.2 mg PO BID 04/07/17 Tamsulosin HCl [Flomax] 0.4 mg PO DAILY 04/24/17 REVIEW OF SYSTEMS CONSTITUTIONAL: Absent: fever, chills, diaphoresis, generalized weakness, malaise, loss of appetite, weight change HEENT: Absent: rhinorrhea, nasal congestion, throat pain, throat swelling, difficulty swallowing, mouth swelling, ear pain, eye pain, visual changes CARDIOVASCULAR: Absent: chest pain, syncope, palpitations, irregular heart rate, lightheadedness , peripheral edema RESPIRATORY: Absent: cough, shortness of breath, dyspnea with exertion, orthopnea, wheezing, stridor, hemoptysis GASTROINTESTINAL: Absent: abdominal pain, abdominal distension, nausea, vomiting, diarrhea, constipation, melena, hematochezia GENITOURINARY: Absent: dysuria, frequency, urgency, hesitancy, hematuria, flank pain, genital pain MUSCULOSKELETAL: Absent: myalgia, arthralgia, joint swelling, back pain, neck pain SKIN: Absent: rash, itching, pallor HEMATOLOGIC/IMMUNOLOGIC: Absent: easy bleeding, easy bruising, lymphadenopathy, frequent infections ENDOCRINE: Absent: unexplained weight gain, unexplained weight loss, heat intolerance, cold intolerance NEUROLOGIC: Absent: headache, focal weakness or paresthesias, dizziness, unsteady gait, seizure, mental status changes, bladder or bowel incontinence PSYCHIATRIC: Absent: anxiety, depression, suicidal or homicidal ideation, hallucinations. PHYSICAL EXAMINATION Vital Signs - 24 hr 11/21/18 23:13 Temperature 98.7 F Pulse Rate 98 H Respiratory 18 Rate Blood Pressure 115/71 O2 Sat by Pulse 100 Oximetry (%) GENERAL: A&Ox3, no acute distress EYES: PERRLA, EOMI ENT: Moist mucus membranes NECK: No JVD LUNGS: CTA, no wheezes HEART: RRR, no murmurs ABDOMEN: Soft, nontender, BS present MUSCULOSKELETAL: No CVA Tenderness EXTREMITIES: 2+ pulses, no edema. NEUROLOGICAL: Cranial nerves II-XII intact. Laboratory Results - last 24 hr 11/21/18 11/21/18 11/21/18 23:27 23:27 23:27 WBC 13.4 H RBC 5.29 Hgb 14.5 Hct 44.0 D MCV 83.2 MCH 27.5 MCHC 33.0 RDW 16.6 H Plt Count 242 MPV 7.8 D Absolute Neuts (auto) 7.3 Neutrophils % 54.3 Lymphocytes % 32.9 Monocytes % 9.5 Eosinophils % 2.5 Basophils % 0.8 Nucleated RBC % 0 PT with INR 13.30 H INR 1.13 H Sodium 138 Potassium 3.8 Chloride 103 Carbon Dioxide 26 Anion Gap 9 BUN 28 H Creatinine 1.3 Est GFR (CKD-EPI)AfAm 73.74 Est GFR (CKD-EPI)NonAf 63.62 Random Glucose 112 H Calcium 8.5 Magnesium 2.1 Total Bilirubin 0.9 AST 183 H ALT 374 H Alkaline Phosphatase 75 Creatine Kinase 154 Creatine Kinase Index 1.3 CK-MB (CK-2) 2.1 Troponin I < 0.02 Total Protein 7.2 Albumin 3.7 ASSESSMENT/PLAN: 48-year-old male with a past medical history of hypertension, hyperlipidemia, benign prostatic hyperplasia, presents the hospital for two hour history of diaphoresis an groin pain that began at 6 PM today. #Diaphoresis/Weakness/Groin Pain: concerning for anginal equivalent and atypical signs of ACS, will do a workup, symptoms have resolved -EKG showed normal sinus rhythm without QTc -trops negative -trend troponins -atorvastatin 40 -lipid profile -TSH -A1C -aspirin 81 -consider cardiology consultation in the morning -echocardiogram -telemetry monitoring -will need to get outpatient #Transaminitis: patient did not show signs of abdominal pain or tenderness, given leukocytosis, will consider gallbladder pathology -RUQ ultrasound negative for any pathology per preliminary report -trend transaminases given -hepatitis panel -urine toxicology #Leukocytosis: could be reactive to the earlier events vs related to the transaminitis -repeat CBC in AM -workup transaminitis as above #Hypertension: patient has been taking clonidine for many years (since he was 18 ) -continue home clonidine 0.2 BID, confirm medications in the morning #BPH: chronic -continue tamsulosin #FEN -normal saline @ 100cc/hr -cholesterol controlled diet -lytes normal #Prophylaxis -lovenox #Disposition -admit obs -will need to recommend colonoscopy as health maintenance on discharge Visit type - Emergency Visit Emergency Visit: Yes ED Registration Date: 11/22/18 Care time: The patient presented to the Emergency Department on the above date and was hospitalized for further evaluation of their emergent condition. - New Patient This patient is new to me today: Yes Date on this admission: 11/22/18 - Critical Care Critical Care patient: No
[2018-11-22 05:41] LABS: HEMATOCRIT 40.6 % (35.4-49); HEMOGLOBIN 13.8 GM/dL (11.7-16.9); MCH 27.9 pg (25.7-33.7); MCHC 33.9 g/dl (32.0-35.9); MEAN CELL VOLUME 82.3 fl (80-96); MEAN PLT VOLUME 7.8 fl (7.5-11.1); PLATELET COUNT 241 K/MM3 (134-434); RBC 4.94 M/mm3 (4.00-5.60); RDW 16.4 % (11.9-15.9)
[2018-11-22 06:13] LABS: ALBUMIN 3.4 g/dl (3.4-5.0); ALK PHOS 74 U/L (45-117); ANION GAP 7 MMOL/L (8-16); BILIRUBIN,TOTAL 0.6 mg/dL (0.2-1); BLOOD UREA NITROGEN 22 mg/dL (7-18); CALCIUM 8.5 mg/dL (8.5-10.1); CHLORIDE 102 mmol/L (98-107); CHOLESTEROL 141 mg/dL (50-200); CO2 28 mmol/L (21-32); CREATININE 0.9 mg/dL (0.55-1.3); GLUCOSE,RANDOM 120 mg/dL (74-106); HDL CHOLESTEROL 40 mg/dL (40-60); MAGNESIUM 2.1 mg/dL (1.8-2.4); PHOSPHOROUS 3.7 mg/dL (2.5-4.9); POTASSIUM 3.1 mmol/L (3.5-5.1); SGOT/AST 184 U/L (15-37); SGPT/ALT 341 U/L (13-61); SODIUM 138 mmol/L (136-145); TOT PROT 6.5 g/dl (6.4-8.2); TRIGLYCERIDES 135 mg/dL (0-150)
[2018-11-22 06:59] VITALS: TEMP 98.1
[2018-11-22] MEDS ORDERED: POTASSIUM CHLORIDE TABS 20 MEQ TABLET.ER (FP) PO ONE (07:40)
[2018-11-22] MEDS ORDERED: TAMSULOSIN HCL 0.4 MG CAP PO SCH (08:30)
[2018-11-22 08:34] VITALS: BP 106/69; PULSE 84
[2018-11-22] MEDS ORDERED: cloNIDine HCL 0.1 MG TABLET PO SCH (10:00)
[2018-11-22] MEDS ORDERED: ASPIRIN COATED 81 MG TABLET.EC PO SCH (10:00)
[2018-11-22] MEDS ORDERED: ENOXAPARIN NA (PORCINE) 40 MG/0.4 ML DISP.SYRIN SQ SCH (10:00)
--- NOTE | 2018-11-22 15:01 | DS ---
Physical Exam: SUBJECTIVE: Patient seen and examined at bedside. States he feels fine and wants to go home as he has many pets to take care of and would like to sign out AMA. OBJECTIVE: Vital Signs Temperature 98.1 F 11/22/18 08:05 Pulse Rate 74 11/22/18 08:05 Respiratory Rate 16 11/22/18 08:05 Blood Pressure 106/69 11/22/18 08:05 O2 Sat by Pulse Oximetry (%) 100 11/22/18 08:05 PHYSICAL EXAM GENERAL: The patient is awake, alert, and fully oriented, in no acute distress. EYES: extraocular movements intact, sclera anicteric, conjunctiva clear. LUNGS: Breath sounds equal, clear to auscultation bilaterally HEART: Regular rate and rhythm, S1, S2 ABDOMEN: Soft, nontender, nondistended, normoactive bowel sounds NEUROLOGICAL: Cranial nerves II through XII grossly intact. Normal speech, normal gait. PSYCH: Normal mood, normal affect. SKIN: Warm, dry LABS Laboratory Results - last 24 hr 11/21/18 11/21/18 11/21/18 23:27 23:27 23:27 WBC 13.4 H RBC 5.29 Hgb 14.5 Hct 44.0 D MCV 83.2 MCH 27.5 MCHC 33.0 RDW 16.6 H Plt Count 242 MPV 7.8 D Absolute Neuts (auto) 7.3 Neutrophils % 54.3 Lymphocytes % 32.9 Monocytes % 9.5 Eosinophils % 2.5 Basophils % 0.8 Nucleated RBC % 0 PT with INR 13.30 H INR 1.13 H Sodium 138 Potassium 3.8 Chloride 103 Carbon Dioxide 26 Anion Gap 9 BUN 28 H Creatinine 1.3 Est GFR (CKD-EPI)AfAm 73.74 Est GFR (CKD-EPI)NonAf 63.62 Random Glucose 112 H Hemoglobin A1c % Calcium 8.5 Phosphorus Magnesium 2.1 Total Bilirubin 0.9 AST 183 H ALT 374 H Alkaline Phosphatase 75 Creatine Kinase 154 Creatine Kinase Index 1.3 CK-MB (CK-2) 2.1 Troponin I < 0.02 Total Protein 7.2 Albumin 3.7 Triglycerides Cholesterol Total LDL Cholesterol HDL Cholesterol TSH 11/22/18 11/22/18 11/22/18 05:27 05:27 05:27 WBC 10.0 RBC 4.94 Hgb 13.8 Hct 40.6 MCV 82.3 MCH 27.9 MCHC 33.9 RDW 16.4 H Plt Count 241 MPV 7.8 Absolute Neuts (auto) Neutrophils % Lymphocytes % Monocytes % Eosinophils % Basophils % Nucleated RBC % PT with INR INR Sodium 138 Potassium 3.1 L Chloride 102 Carbon Dioxide 28 Anion Gap 7 L BUN 22 H Creatinine 0.9 Est GFR (CKD-EPI)AfAm 115.02 Est GFR (CKD-EPI)NonAf 99.24 Random Glucose 120 H Hemoglobin A1c % 5.6 Calcium 8.5 Phosphorus 3.7 Magnesium 2.1 Total Bilirubin 0.6 AST 184 H ALT 341 H Alkaline Phosphatase 74 Creatine Kinase Creatine Kinase Index CK-MB (CK-2) Troponin I < 0.02 Total Protein 6.5 Albumin 3.4 Triglycerides 135 Cholesterol 141 Total LDL Cholesterol 86 HDL Cholesterol 40 TSH 3.35 HOSPITAL COURSE: Date of Admission:11/22/18 Date of Discharge: 11/22/18 48 y/o M w/PMH of HTN, HLD, BPH presented to the ER with 2 hours of diaphoresis and groin pain. He was admitted to r/o ACS. He was found to have 2 negative trops. EKG did not show signs of ACS. He was also noted to have elevated LFTs on labs and abd U/S was done which did not show acute pathology. Hepatitis panel was done as well. Pt signed out AMA before the results of abd U/S could be given. Risks of signing out AMA including but not limited to worsening of his current condition, infection, [place], or even were explained to pt. Pt reported understanding risks and signed out AMA. He was told to f/u with PCP for further work up of his elevated LFTs before leaving. Minutes to complete discharge: 55 Discharge Summary Reason For Visit: ACUTE CORONARY SYNDROME Condition: Stable - Instructions Disposition: AGAINST MEDICAL ADVICE - Home Medications Comprehensive Discharge Medication List: Ambulatory Orders Clonidine HCl 0.2 mg PO BID 04/07/17 Tamsulosin HCl [Flomax] 0.4 mg PO DAILY 04/24/17 This patient is new to me today: Yes Date on this admission: 11/22/18 Emergency Visit: Yes ED Registration Date: 11/22/18 Care time: The patient presented to the Emergency Department on the above date and was hospitalized for further evaluation of their emergent condition. Critical Care patient: No - Discharge Referral Referred to [facility] Med [facility] No
--- NOTE | 2018-11-22 15:06 | EKG ---
Test Reason : Blood Pressure : / mmHG Vent. Rate : 073 BPM Atrial Rate : 073 BPM P-R Int : 142 ms QRS Dur : 088 ms QT Int : 370 ms P-R-T Axes : 019 010 017 degrees QTc Int : 407 ms NORMAL SINUS RHYTHM CANNOT RULE OUT ANTERIOR INFARCT (CITED ON OR BEFORE 22-NOV-2018) ABNORMAL ECG WHEN COMPARED WITH ECG OF 22-NOV-2018 00:10, NO SIGNIFICANT CHANGE WAS FOUND Confirmed by CARLOS BEE MD ([id number]) on 11/22/2018 3:06:37 PM Referred By: Confirmed By:CARLOS BEE MD
--- NOTE | 2018-11-22 15:09 | EKG ---
Test Reason : Blood Pressure : / mmHG Vent. Rate : 079 BPM Atrial Rate : 079 BPM P-R Int : 140 ms QRS Dur : 082 ms QT Int : 364 ms P-R-T Axes : 014 -01 003 degrees QTc Int : 417 ms NORMAL SINUS RHYTHM CANNOT RULE OUT ANTERIOR INFARCT , AGE UNDETERMINED ABNORMAL ECG WHEN COMPARED WITH ECG OF 03-FEB-2018 00:24, NO SIGNIFICANT CHANGE WAS FOUND Confirmed by CARLOS BEE MD ([id number]) on 11/22/2018 3:09:15 PM Referred By: Confirmed By:CARLOS BEE MD
--- NOTE | 2018-11-22 17:59 | PN ---
Teaching Attending Note Name of Resident: Tj Beebe ATTENDING PHYSICIAN STATEMENT I saw and evaluated the patient. I reviewed the resident's note and discussed the case with the resident. I agree with the resident's findings and plan as documented. Patient left AMA Problem List - Problems (1) BPH (benign prostatic hyperplasia) Code(s): N40.0 - BENIGN PROSTATIC HYPERPLASIA WITHOUT LOWER URINRY TRACT SYMP (2) HTN (hypertension) Code(s): I10 - ESSENTIAL (PRIMARY) HYPERTENSION Qualifiers: Hypertension type: essential hypertension Qualified Code(s): I10 - Essential (primary) hypertension (3) Transaminitis Code(s): R74.0 - NONSPEC ELEV OF LEVELS OF TRANSAMNS & LACTIC ACID DEHYDRGNSE (4) Atypical chest pain Code(s): R07.89 - OTHER CHEST PAIN
[2018-11-22] MEDS ORDERED: ATORVASTATIN CA 40 MG TABLET (FP) PO SCH (22:00)
[2018-11-23 02:10] LABS: HEP.C VIRUS AB >11.0 s/co ratio (0.0-0.9)
== END 2018-11-22 08:25 | disposition left against medical advice (07) ==
LOC: JER 23:09 → JERBED 11-22 02:15
PROVIDERS: ADMIT Internal Medicine; ATTEND Internal Medicine
PROC: 3E0337Z Introduction of Electrolytic and Water Balance Substance into Peripheral Vein, Percutaneous Approach (ICD-10-PCS; principal; 2018-11-22)
DX: I24.9 Acute ischemic heart disease, unspecified (principal); R61 Generalized hyperhidrosis; R53.1 Weakness; I10 Essential (primary) hypertension; E78.5 Hyperlipidemia, unspecified; I25.2 Old myocardial infarction; N40.0 Benign prostatic hyperplasia without lower urinary tract symptoms; F17.210 Nicotine dependence, cigarettes, uncomplicated; R94.5 Abnormal results of liver function studies; D72.829 Elevated white blood cell count, unspecified; R74.0 Nonspecific elevation of levels of transaminase and lactic acid dehydrogenase [LDH]; R10.30 Lower abdominal pain, unspecified; Z79.82 Long term (current) use of aspirin
CPT/HCPCS: 36415; 71045-TC-FY; 76705-TC; 80053; 80061; 80074; 82550; 82553; 83036; 83721; 83735; 84100; 84443; 84484; 85025; 85027; 85610; 93005; 93010; 99285-25; G0378; J7030

== ENCOUNTER 2019-01-26 11:31 | Inpatient (IN) | payer OTHER | END 2019-01-30 10:59 | disposition home or self-care (01) | LOC: YASAS 11:31 → Y6N 14:12 ==

== ENCOUNTER 2021-12-01 12:53 | Inpatient (IN) | payer OTHER ==
[2021-12-01 13:27] VITALS: BMI 24.2
[2021-12-01] MEDS ORDERED: LOPERAMIDE HCL 2 MG CAPSULE PO PRN (13:59)
[2021-12-01] MEDS ORDERED: ONDANSETRON *ODT* 4 MG TABLET SL PRN (13:59)
[2021-12-01] MEDS ORDERED: chlordiazePOXIDE HCL 25 MG CAPSULE PO PRN (13:59)
[2021-12-01] MEDS ORDERED: IBUPROFEN 600 MG TABLET (FP) PO PRN (13:59)
[2021-12-01] MEDS ORDERED: MAG HYDROX/AL HYDROX/SIMETH 30 ML UNIT-DOSE CUP PO PRN (13:59)
[2021-12-01] MEDS ORDERED: ACETAMINOPHEN 325 MG TABLET (FP) PO PRN ×2 (13:59)
[2021-12-01] MEDS ORDERED: MAGNESIUM HYDROX 2400MG/30ML ORAL SUSPENSION 30 ML CUP PO PRN (13:59)
[2021-12-01] MEDS ORDERED: NALOXONE HCL (KLOXXADO) 8 MG SPRAY NS PRN (13:59)
[2021-12-01] MEDS ORDERED: MAGNESIUM CITRATE 300 ML BOTTLE PO PRN (13:59)
[2021-12-01] MEDS ORDERED: BENZOCAINE/MENTHOL (CHLORASEPTIC ) LOZENGE MM PRN (13:59)
[2021-12-01] MEDS ORDERED: DICYCLOMINE HCL 10 MG CAPSULE PO PRN (13:59)
[2021-12-01] MEDS ORDERED: IBUPROFEN 400 MG TABLET (FP) PO PRN (13:59)
[2021-12-01] MEDS ORDERED: NICOTINE 10 MG CARTRIDGE (INHALER) IH PRN (13:59)
[2021-12-01] MEDS ORDERED: BISMUTH SUBSALICYLATE 524 MG/30 ML PO PRN (13:59)
[2021-12-01] MEDS ORDERED: methaDONE HCL 10 MG TABLET (FOR DETOX USE ONLY) PO ONE (14:30)
[2021-12-01] MEDS ORDERED: chlordiazePOXIDE HCL 25 MG CAPSULE ONE (19:20)
[2021-12-01] MEDS ORDERED: methaDONE HCL 10 MG TABLET (FOR DETOX USE ONLY) ONE (19:20)
[2021-12-01] MEDS ORDERED: hydrOXYzine PAMOATE 25 MG CAPSULE (FP) PO ONE (19:20)
[2021-12-01] MEDS: chlordiazePOXIDE HCL 25 MG CAPSULE PO SCH ×2 (19:25→22:24)
[2021-12-01] MEDS: PRENATAL VITAMINS W/ FOLIC ACID TABLET (FP) PO SCH (19:25)
[2021-12-01] MEDS: hydrOXYzine PAMOATE 25 MG CAPSULE (FP) PO SCH ×3 (19:25→22:24)
[2021-12-01] MEDS ORDERED: MELATONIN 5 MG TABLETS PO SCH (22:00)
[2021-12-01] MEDS: THIAMINE HCL 100 MG TABLET (FP) PO SCH (22:24)
[2021-12-02] MEDS: hydrOXYzine PAMOATE 25 MG CAPSULE (FP) PO SCH ×5 (06:04→22:13)
[2021-12-02] MEDS: chlordiazePOXIDE HCL 25 MG CAPSULE PO SCH ×4 (06:04→22:13)
[2021-12-02] MEDS ORDERED: methaDONE HCL 10 MG TABLET (FOR DETOX USE ONLY) ONE (09:48)
[2021-12-02] MEDS: PRENATAL VITAMINS W/ FOLIC ACID TABLET (FP) PO SCH (10:39)
[2021-12-02] MEDS: METHOCARBAMOL 500 MG TABLET PO PRN ×2 (10:40→22:13)
[2021-12-02 11:35] LABS: HEMOGLOBIN 13.2 GM/dL (11.7-16.9); MCH 29.1 pg (25.7-33.7); MCHC 33.9 g/dl (32.0-35.9); MEAN CELL VOLUME 85.8 fl (80-96); PLATELET COUNT 195 10^3/uL (134-434); RBC 4.54 M/mm3 (4.00-5.60); RDW 15.7 % (11.9-15.9); WHITE BLOOD COUNT 8.9 K/mm3 (4.0-10.0)
[2021-12-02 12:01] LABS: CALCIUM 9.1 mg/dL (8.5-10.1)
[2021-12-02 12:02] LABS: ALBUMIN 3.9 g/dl (3.4-5.0); BLOOD UREA NITROGEN 19.4 mg/dL (7-18)
[2021-12-02 12:03] LABS: CREATININE 0.8 mg/dL (0.55-1.3)
[2021-12-02 12:05] LABS: BILIRUBIN,TOTAL 0.7 mg/dL (0.2-1); TOT PROT 7.6 g/dl (6.4-8.2)
[2021-12-02] MEDS ORDERED: SUVOREXANT 10 MG TABLET PO PRN (22:00)
[2021-12-02] MEDS: THIAMINE HCL 100 MG TABLET (FP) PO SCH (22:12)
[2021-12-02] MEDS: cloNIDine HCL 0.1 MG TABLET PO PRN (22:13)
[2021-12-03] MEDS: cloNIDine HCL 0.1 MG TABLET PO PRN (01:58)
[2021-12-03] MEDS: hydrOXYzine PAMOATE 25 MG CAPSULE (FP) PO SCH ×2 (05:52→10:17)
[2021-12-03] MEDS: chlordiazePOXIDE HCL 25 MG CAPSULE PO SCH ×2 (05:52→10:16)
[2021-12-03 09:17] VITALS: TEMP 98.1
[2021-12-03] MEDS ORDERED: methaDONE HCL 10 MG TABLET (FOR DETOX USE ONLY) PO ONE (10:00)
[2021-12-03] MEDS: PRENATAL VITAMINS W/ FOLIC ACID TABLET (FP) PO SCH (10:16)
[2021-12-03] MEDS: METHOCARBAMOL 500 MG TABLET PO PRN (10:17)
[2021-12-03 13:08] VITALS: BP 102/58; PULSE 71
[2021-12-04] MEDS ORDERED: chlordiazePOXIDE HCL 10 MG CAPSULE PO PRN
[2021-12-04] MEDS ORDERED: chlordiazePOXIDE HCL 10 MG CAPSULE PO SCH (05:00)
[2021-12-05] MEDS ORDERED: chlordiazePOXIDE HCL 10 MG CAPSULE PO SCH (05:00)
[2021-12-05] MEDS ORDERED: methaDONE HCL 10 MG TABLET (FOR DETOX USE ONLY) PO ONE (10:00)
[2021-12-06] MEDS ORDERED: chlordiazePOXIDE HCL 10 MG CAPSULE PO ONE (05:00)
== END 2021-12-03 15:05 | disposition left against medical advice (07) | DRG 770 ==
LOC: YASAS 12:53 → Y6N 19:43
PROVIDERS: ADMIT Allergy & Immunology; ATTEND Surgery
PROC: HZ2ZZZZ Detoxification Services for Substance Abuse Treatment (ICD-10-PCS; principal; 2021-12-01)
DX: F11.23 Opioid dependence with withdrawal (principal); F10.230 Alcohol dependence with withdrawal, uncomplicated; F14.20 Cocaine dependence, uncomplicated; F17.210 Nicotine dependence, cigarettes, uncomplicated; F19.280 Other psychoactive substance dependence with psychoactive substance-induced anxiety disorder; F19.282 Other psychoactive substance dependence with psychoactive substance-induced sleep disorder; F19.24 Other psychoactive substance dependence with psychoactive substance-induced mood disorder; E78.5 Hyperlipidemia, unspecified; I10 Essential (primary) hypertension; N40.0 Benign prostatic hyperplasia without lower urinary tract symptoms; R76.11 Nonspecific reaction to tuberculin skin test without active tuberculosis; Z86.16 Personal history of COVID-19; Z56.0 Unemployment, unspecified
CPT/HCPCS: 36415; 71046-TC-FY; 80053; 85027; 86780; 87811; 93005; 93010; C9803-CS; J0735; U0003; U0005

== ENCOUNTER 2024-09-11 05:29 | Day surgery (SDC) | payer OTHER ==
[2024-09-08 14:01] VITALS: BMI 24.2
[2024-09-11 12:47] VITALS: RESP 18
[2024-09-11 14:57] VITALS: BP 116/75; PULSE 102; TEMP 97.8
== END 2024-09-11 15:20 | disposition home or self-care (01) ==
LOC: JASU-SURG 05:29
PROVIDERS: ATTEND Pain Medicine Pain Medicine
PROC: 3E0R3BZ Introduction of Anesthetic Agent into Spinal Canal, Percutaneous Approach (ICD-10-PCS; 2024-09-11)
PROC: 3E0R33Z Introduction of Anti-inflammatory into Spinal Canal, Percutaneous Approach (ICD-10-PCS; principal; 2024-09-11 14:15)
DX: M54.16 Radiculopathy, lumbar region (principal); M48.061 Spinal stenosis, lumbar region without neurogenic claudication
CPT/HCPCS: 76000-TC-FY